=== PATIENT | male | born 1990 | race Hispanic/Latino ===

== ENCOUNTER 2019-08-01 23:36 | Inpatient (IN) | payer BC ==
[~2019-08-01] VITALS: Ht 175.3 cm; Wt 90.7 kg
[~2019-08-01 23:36] MED LIST: TYLENOL WITH C1 EACH PO
[2019-08-02] MEDS ORDERED: ACETAMINOPHEN 325 MG TAB PO ONE (00:30)
[2019-08-02 01:36] LABS: BASOPHILS # (AUTO) 0.1 (0.0-0.1); BASOPHILS % 0.7 % (0.0-1.0); EOSINOPHILS # (AUTO) 0.3 (0.0-0.4); EOSINOPHILS % 2.8 % (0.0-6.0); HEMATOCRIT 41.3 % (38.2-49.6); HEMOGLOBIN 14.3 g/dL (14.0-18.0); LYMPHOCYTES # (AUTO) 0.9 (1.0-3.2); LYMPHOCYTES % 8.7 % (18.0-39.1); MEAN CORPUSCULAR HEMOGLOBIN 30.6 pg (28-32); MEAN CORPUSCULAR HGB CONC 34.6 g/dL (31-35); MEAN CORPUSCULAR VOLUME 88.2 fL (81-99); MONOCYTES # (AUTO) 0.9 (0.2-0.8); MONOCYTES % 8.5 % (4.4-11.3); NEUTROPHILS % 79.1 % (38.7-80.0); PLATELET COUNT 231 x10e3/uL (140-360); RED BLOOD COUNT 4.68 x10e6/uL (4.3-5.7); RED CELL DISTRIBUTION WIDTH 12.5 % (11.7-14.4)
[2019-08-02 01:53] LABS: ALANINE AMINOTRANSFERASE 112 IU/L (0-55); ALBUMIN 4.5 g/dL (3.5-5.0); ALBUMIN/GLOBULIN RATIO 1.4 (0.8-2.0); ALKALINE PHOSPHATASE 107 IU/L (40-150); ANION GAP 14.7 mmol/L (8-16); BLOOD UREA NITROGEN 12 mg/dL (7-26); BUN/CREATININE RATIO 14 (6-25); CALCIUM 9.9 mg/dL (8.4-10.2); CARBON DIOXIDE 29 mmol/L (22-29); CHLORIDE 101 mmol/L (98-107); CREATINE KINASE 119 IU/L (30-200); CREATININE, SERUM 0.85 mg/dL (0.72-1.25); EST GLOMERULAR FILTRATION RATE > 60 ML/MIN (60-); GLUCOSE 91 mg/dL (74-118); POTASSIUM 3.7 mmol/L (3.5-5.1); SODIUM 141 mmol/L (136-145)
[2019-08-02] MEDS ORDERED: ONDANSETRON HCL INJ 2MG/ML 2ML 2 MG/ML VIAL IV STA (02:19)
[2019-08-02] MEDS ORDERED: IOPAMIDOL 370 MG/ML 200 ML INFUS..BTL INJ ONE (02:26)
[2019-08-02] MEDS ORDERED: SODIUM CHLORIDE 0.9% 50ML 50 ML ONE (02:26)
[2019-08-02] MEDS ORDERED: MORPHINE SULFATE INJ 4 MG/ML INJ 1ML IV ONE (02:30)
[2019-08-02] MEDS ORDERED: MORPHINE SULFATE INJ 4 MG/ML INJ 1ML ONE (02:31)
[2019-08-02] MEDS ORDERED: MORPHINE SULFATE 2 MG/ML SYR 1ML ONE (02:32)
--- NOTE | 2019-08-02 03:17 | Diagnostic Imaging Report ---
EXAM: CT Pelvis with contrast INDICATION: Fever, follow-up scrotal abscess. COMPARISON: None. TECHNIQUE: Pelvis were scanned utilizing a multidetector helical scanner from the iliac crest to the pubic symphysis without administration of IV contrast. Coronal and sagittal reformations were obtained. Routine protocol was performed. IV CONTRAST: 100 cc of Isovue 370 ORAL CONTRAST: None RADIATION DOSE: Total DLP: 469 mGy*cm Estimated effective dose: (DLP x 0.015 x size factor) mSv COMPLICATIONS: None FINDINGS: LINES and TUBES: None. GI TRACT: Partially visualized. No evidence of bowel obstruction or wall thickening. PELVIC ORGANS/BLADDER: The bladder and prostate appear unremarkable. LYMPH NODES: No lymphadenopathy. VESSELS: Unremarkable. PERITONEUM / RETROPERITONEUM: No free air or fluid. BONES: Unremarkable. SOFT TISSUES: There are bilateral small hydroceles. Scrotal wall appears thickened. No evidence of abscess. IMPRESSION: Bilateral small hydroceles. Scrotal wall thickening, which may reflect cellulitis. No definite abscess. Signed by: Dr. Rajwinder Lambert MD on 08/02/2019 3:13 AM
[2019-08-02 03:27] LABS: BILIRUBIN,URINE NEGATIVE (NEGATIVE); CLARITY,URINE CLEAR (CLEAR); COLOR,URINE YELLOW (YELLOW); KETONES,URINE NEGATIVE (NEGATIVE); LEUKOCYTE ESTERASE ,URINE NEGATIVE (NEGATIVE); NITRITE,URINE NEGATIVE (NEGATIVE); PROTEIN,URINE DIPSTICK NEGATIVE (NEGATIVE); URINE UROBILINOGEN 0.2 mg/dL (0.2 - 1)
[2019-08-02] MEDS ORDERED: CEFEPIME HCL 1 GM VIAL IV SCH (03:30)
[2019-08-02] MEDS ORDERED: VANCOMYCIN 1GM/NS 250 ML 250 ML IV SCH (03:30)
[2019-08-02] MEDS ORDERED: MORPHINE SULFATE INJ 4 MG/ML INJ 1ML IV PRN ×2 (03:30→09:00)
[2019-08-02] MEDS ORDERED: ONDANSETRON HCL INJ 2MG/ML 2ML 2 MG/ML VIAL IV PRN (03:30)
[2019-08-02 03:39] LABS: BACTERIA,URINE RARE /HPF; EPITHELIAL CELLS,URINE RARE /LPF; MUCUS,URINE FEW (RARE); RBC,URINE 0-5 /HPF (0-5); WBC,URINE (MAN) 0-5 /HPF (0-5)
[2019-08-02] MEDS ORDERED: CEFEPIME 1GM/NS 0.9% 50 ML 50 ML IV SCH (04:00)
[2019-08-02 07:35] VITALS: BP 142/94
--- NOTE | 2019-08-02 07:35 | NUR ---
PATIENT RECEIVED FROM ER PER WHEEL CHAIR. ALERT AND VERBALLY RESPONSIVE. SKIN WARM AND DRY TO TOUCH, REDNESS AND SCROTUM. RESPIRATION EVEN AND UNLABORED. ABDOMEN SOFT AND NON DISTENDED. PATIENT ORIENTED TO SURROUNDINGS. BED IN LOWER POSITION, CALL LIGHT AT REACH, INSTRUCTED TO CALL FOR ASSISTANCE NEEDED.
[2019-08-02 08:00] VITALS: BP 142/84
[2019-08-02] MEDS ORDERED: ACETAMINOPHEN/CODEINE 300MG - 30MG TAB PO PRN (08:45)
--- NOTE | 2019-08-02 11:47 | NUR ---
PATIENT IS AMBULATING IN HALLWAY BY SELF. NO COMPLAIN VOICED. WILL CLOSELY MONITOR.
[2019-08-02 13:00] VITALS: BP 124/76
--- NOTE | 2019-08-02 15:55 | NUR ---
PATIENT IN BED RESTING WITH EYES CLOSED, NO DISTRESS NOTED. CALL LIGHT AT REACH.
[2019-08-02 16:00] VITALS: BP 121/62
[2019-08-02] MEDS: MORPHINE SULFATE 2 MG/ML SYR 1ML IV PRN (18:10)
--- NOTE | 2019-08-02 18:19 | Consultation ---
DATE OF CONSULTATION: REASON FOR CONSULTATION: The patient has cellulitis of scrotum with low fever, recommendation on antibiotic. HISTORY OF PRESENT ILLNESS: This patient, who is well known to me is a 29-year-old male, who was recently in the hospital where he was diagnosed with abscess of the scrotum, underwent debridement by Dr. Raza. The patient was discharged home on IV antibiotic, did grow MRSA. The patient was getting vancomycin. He started to have pain in the scrotum with some fever and chills so he came here. He is currently lying in bed comfortably. PAST MEDICAL HISTORY: Scrotal abscess. PAST SURGICAL HISTORY: Debridement. ALLERGIES: NKA. SOCIAL HISTORY: There is no smoking, drug abuse, or alcohol abuse. FAMILY HISTORY: Otherwise unremarkable. REVIEW OF SYSTEMS: HEENT: Negative. PULMONARY: Negative. CARDIAC: Negative. : Negative beside the pain and swelling he denies any. PHYSICAL EXAMINATION: GENERAL: He is currently alert, oriented, does not seem to be in acute distress. VITAL SIGNS: Stable, currently afebrile. HEENT: He is not icteric. NECK: Supple. CHEST: Clear. HEART: S1, S2. No S3, S4, or murmur. ABDOMEN: Soft. Bowel sounds present. No tenderness. : Scrotum; there is no redness, no edema at the present time. IMAGING DATA: His CT scan shows scrotal wall thickness, which may reflect cellulitis. No abscess. Bilateral small hydrocele. IMPRESSION: 1. Abscess of scrotum slowly getting better. He is currently on vancomycin. 2. Low fever, it could be drug related. His lab data was within normal limits, monocytes slightly elevated. We will observe blood cultures, if they came back negative in 48 hours we can probably change to oral antibiotic, in the meantime continue with the same. We will follow with you. Thank you for asking me to see this patient. MD MONSE Perez/JANESSA /[id number]
[2019-08-02 19:13] VITALS: BP 128/64
--- NOTE | 2019-08-02 19:13 | NUR ---
PT IS RESTING IN BED. RESPIRATION IS EVEN AND UNLABORED, NO DISTRESS NOTED. BED IN THE LOWEST POSITION, LOCKED, AND CALL LIGHT WITHIN REACH. WILL CONTINUE TO MONITOR.
[2019-08-02 20:00] VITALS: BP 128/64
[2019-08-03] VITALS (8 sets, daily range): BP systolic 111–136; BP diastolic 59–90
[2019-08-03] MEDS: MORPHINE SULFATE 2 MG/ML SYR 1ML IV PRN (01:56)
[2019-08-03] MEDS ORDERED: SODIUM CHLORIDE 0.9% 250ML 250 ML ONE (03:40)
[2019-08-03] MEDS: VANCOMYCIN 1GM/NS 250 ML 250 ML IV SCH (03:57)
[2019-08-03] MEDS ORDERED: TYLENOL WITH C1 EACH PO (05:32)
[2019-08-03] MEDS: ACETAMINOPHEN/CODEINE 300MG - 30MG TAB PO PRN ×3 (05:34→18:58)
[2019-08-03 06:22] LABS: BASOPHILS # (AUTO) 0.1 (0.0-0.1); BASOPHILS % 0.8 % (0.0-1.0); EOSINOPHILS # (AUTO) 0.6 (0.0-0.4); EOSINOPHILS % 7.6 % (0.0-6.0); HEMATOCRIT 38.9 % (38.2-49.6); HEMOGLOBIN 13.5 g/dL (14.0-18.0); LYMPHOCYTES # (AUTO) 1.6 (1.0-3.2); LYMPHOCYTES % 21.7 % (18.0-39.1); MEAN CORPUSCULAR HEMOGLOBIN 30.8 pg (28-32); MEAN CORPUSCULAR HGB CONC 34.7 g/dL (31-35); MEAN CORPUSCULAR VOLUME 88.6 fL (81-99); MONOCYTES # (AUTO) 0.7 (0.2-0.8); MONOCYTES % 9.9 % (4.4-11.3); NEUTROPHILS # (AUTO) 4.5 (2.1-6.9); NEUTROPHILS % 59.6 % (38.7-80.0); PLATELET COUNT 162 x10e3/uL (140-360); RED BLOOD COUNT 4.39 x10e6/uL (4.3-5.7); RED CELL DISTRIBUTION WIDTH 12.3 % (11.7-14.4)
[2019-08-03 06:37] LABS: ANION GAP 13.2 mmol/L (8-16); BLOOD UREA NITROGEN 12 mg/dL (7-26); BUN/CREATININE RATIO 13 (6-25); CALCIUM 9.2 mg/dL (8.4-10.2); CARBON DIOXIDE 25 mmol/L (22-29); CHLORIDE 102 mmol/L (98-107); CREATININE, SERUM 0.89 mg/dL (0.72-1.25); EST GLOMERULAR FILTRATION RATE > 60 ML/MIN (60-); GLUCOSE 142 mg/dL (74-118); POTASSIUM 3.2 mmol/L (3.5-5.1); SODIUM 137 mmol/L (136-145)
[2019-08-03] MEDS ORDERED: POTASSIUM CHLORIDE 20 MEQ TAB CR PO NR (11:30)
--- NOTE | 2019-08-03 15:50 | NUR ---
Visit made by the Spiritual Care Department Pastoral Visitor, Julia Mason. PV provided pastoral presence, hospitality, and supportive listening. Pastoral Visitor informed pt/family of the scope of [employer] [employer] and availability. CARLYN INFANTE Backhoe Operator Spiritual Care Department O: [phone] Pager: [phone] ([phone] calling from)
--- NOTE | 2019-08-03 17:01 | Consultation ---
DATE OF CONSULTATION: 08/02/2019 Dr. Rusty Raza dictating a consultation for Dr. Savage Beyer. REASON FOR CONSULTATION: Fever, pain. History of scrotal abscess with MRSA. HISTORY: A 29-year-old male, who had abscess of the scrotum, has been treated with drainage, excision, debridement, and IV antibiotics by Dr. Lynch. My part of the operation has gone well. We have been following him in the office, exchanging the packings every day, cleaning him until finally the incision had completely closed and stopped draining. The patient comes to the hospital with increasing pain and supposedly fever. LABORATORY WORK: White count 10.5, when the patient came into the hospital yesterday, today 7.5. The rest of the labs are normal except his sugar level were a little high this morning, although yesterday was normal, I believe that is due to the IV that he is receiving. PHYSICAL EXAMINATION: The patient has pain. Interestingly, the only thing left is about 3 x 2 cm hard according to the patient, tender area. The findings are not consistent with the amount of pain the patient is experiencing. 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 We discussed pain medication. I do not think the patient should have any morphine or Demerol. He should get only tramadol by mouth for pain. I discussed with the patient on recommendation. Currently, the patient has a hard tender area subcutaneously in the area of the abscess. The rest of the examination is normal including the rest of the scrotum. I told the patient that as we discussed during his 1st admission was at sometimes this problems required 2 to 3 surgeries and I told him that I would recommend excision and removal of the entire hard area that is tender. Currently, the patient refuses to have anymore surgery, wants to see if either more prolonged antibiotic therapy would soft in this spot and take the inflammation away; therefore, I told him that I will let him think about it overnight and make rounds tomorrow and if the patient has decided not to have surgery, then he can be followed either in the hospital as an outpatient by Dr. Lynch. I again think that the patient has a dependent personality and I would definitely not give him any narcotics for this pain. The findings are not consistent with the amount of pain that the patient is experiencing. MD SHILOH Martin/JANESSA /[id number]
[2019-08-04] VITALS (7 sets, daily range): BP systolic 121–131; BP diastolic 58–76
[2019-08-04] MEDS: ACETAMINOPHEN/CODEINE 300MG - 30MG TAB PO PRN ×3 (03:42→18:12)
[2019-08-04] MEDS: VANCOMYCIN 1GM/NS 250 ML 250 ML IV SCH (03:42)
[2019-08-04 04:13] LABS: BASOPHILS # (AUTO) 0.1 (0.0-0.1); BASOPHILS % 0.8 % (0.0-1.0); EOSINOPHILS # (AUTO) 0.4 (0.0-0.4); EOSINOPHILS % 6.2 % (0.0-6.0); HEMOGLOBIN 13.9 g/dL (14.0-18.0); LYMPHOCYTES # (AUTO) 1.4 (1.0-3.2); LYMPHOCYTES % 20.1 % (18.0-39.1); MEAN CORPUSCULAR HEMOGLOBIN 31.3 pg (28-32); MEAN CORPUSCULAR HGB CONC 35.6 g/dL (31-35); MEAN CORPUSCULAR VOLUME 87.8 fL (81-99); MONOCYTES # (AUTO) 0.8 (0.2-0.8); MONOCYTES % 10.5 % (4.4-11.3); NEUTROPHILS # (AUTO) 4.4 (2.1-6.9); NEUTROPHILS % 62.1 % (38.7-80.0); PLATELET COUNT 188 x10e3/uL (140-360); RED BLOOD COUNT 4.44 x10e6/uL (4.3-5.7); RED CELL DISTRIBUTION WIDTH 12.3 % (11.7-14.4)
[2019-08-04 04:32] LABS: ANION GAP 13.7 mmol/L (8-16); BLOOD UREA NITROGEN 18 mg/dL (7-26); BUN/CREATININE RATIO 22 (6-25); CALCIUM 9.3 mg/dL (8.4-10.2); CARBON DIOXIDE 25 mmol/L (22-29); CHLORIDE 104 mmol/L (98-107); CREATININE, SERUM 0.83 mg/dL (0.72-1.25); EST GLOMERULAR FILTRATION RATE > 60 ML/MIN (60-); GLUCOSE 109 mg/dL (74-118); POTASSIUM 3.7 mmol/L (3.5-5.1); SODIUM 139 mmol/L (136-145)
[2019-08-04] MEDS ORDERED: DOXYCYCLINE HY100 MG PO (05:35)
--- NOTE | 2019-08-04 07:30 | NUR ---
SPOKE WITH DR WONG RE; PT DISCHARGE OR POSSIBLE SURGERY,STATED HE WOULD BE HERE AT NOON TO SPEAK TO PT.
--- NOTE | 2019-08-04 14:20 | NUR ---
PT TRANSPORTED TO OR VIA BED
[2019-08-04] MEDS ORDERED: BUPIVACAINE 0.25% 30ML SDV INJ ONE (15:26)
[2019-08-04] MEDS ORDERED: BACITRACIN 50,000 UNIT VIAL ONE (15:26)
[2019-08-04] MEDS ORDERED: HYDROGEN PEROXIDE 120 ML BTL ONE (15:26)
[2019-08-04] MEDS ORDERED: MORPHINE SULFATE INJ 4 MG/ML INJ 1ML ONE (17:08)
--- NOTE | 2019-08-04 17:45 | NUR ---
PT RETURNED TO ROOM VIA BED AWAKE,C/O PAIN LEVEL 4 TO SCROTAL REQUESTING IV PAIN ,EXPLAINED TO PT PO PAIN MEDS ORDERED.ACKNOWLEDGE UNDERSTnding.pt refused TRAMADOL AND GABERPENTIN
[2019-08-04] MEDS ORDERED: MIDAZOLAM HCL 2 MG/2 ML VIAL ONE (17:51)
[2019-08-04] MEDS ORDERED: FENTANYL CITRATE/PF 100MCG/2 ML INJ ONE (17:51)
[2019-08-04] MEDS ORDERED: TRAMADOL HCL 50 MG TAB PO PRN (18:00)
--- NOTE | 2019-08-04 19:10 | NUR ---
Completed bedside nursing report with morning nurse. Pt alert and orient to name. Lying supine in bed flat. Call ambriz within reach. Will continue to monitor.
[2019-08-04] MEDS ORDERED: SEVOFLURANE INHAL SOLN 250 ML PEN BTL ONE (19:15)
[2019-08-04] MEDS ORDERED: KETOROLAC TROMETHAMINE 30 MG/ML VIAL ONE (19:15)
[2019-08-04] MEDS ORDERED: PROPOFOL IV EMULSION 10 MG/ML 20 ML VIAL ONE (19:15)
[2019-08-04] MEDS ORDERED: DEXAMETHASONE SOD PHOS INJ 4 MG/ML VIAL ONE (19:15)
[2019-08-04] MEDS ORDERED: ONDANSETRON HCL INJ 2MG/ML 2ML 2 MG/ML VIAL ONE (19:15)
[2019-08-04] MEDS ORDERED: LIDOCAINE HCL 2% LOCAL INJ 5 ML SDV VIAL INJ ONE (19:15)
[2019-08-05] VITALS: BP 138/82
[2019-08-05] MEDS ORDERED: HYDROCODONE/APAP 10MG-325MG TAB PO PRN
[2019-08-05] MEDS: MORPHINE SULFATE 2 MG/ML SYR 1ML IV PRN ×2 (00:25→04:30)
[2019-08-05 04:00] VITALS: BP 124/62
[2019-08-05] MEDS: VANCOMYCIN 1GM/NS 250 ML 250 ML IV SCH (04:30)
[2019-08-05] MEDS ORDERED: MORPHINE SULFATE 2 MG/ML SYR 1ML IV PRN (06:15)
[2019-08-05] MEDS ORDERED: ACETAMINOPHEN/CODEINE 300MG - 30MG TAB PO PRN (06:30)
[2019-08-05 07:59] VITALS: BP 142/80
[2019-08-05 08:44] VITALS: BP 142/80
[2019-08-05] MEDS ORDERED: GABAPENTIN 300 MG CAP PO SCH (09:00)
[2019-08-05 11:48] VITALS: BP 111/57
--- NOTE | 2019-08-05 13:55 | NUR ---
Per Dr Raza's SENIOR GEOTECHNICAL ENGINEER patient follow up in office tomorrow 8:30am, and patient can be discharge today. Ida LIRA notified
--- NOTE | 2019-08-05 15:14 | NUR ---
Patient discharged Home, prescription given, PICC line dc d per Ida OPERATIONS ASSISTANT, IV canula removed from left AC tip intact, no ss of infiltration noted, patient aware about his f/up appointment with Dr Raza Tomorrow 8:30am, dressing on scrotal area is intact, not in any distress, he refused wheelchair, walked with him until front lobby. He got taxi
--- NOTE | 2019-08-06 22:36 | Operative Report ---
DATE OF PROCEDURE: 08/04/2019 SURGEON: Rusty Raza MD PREOPERATIVE DIAGNOSIS: Scrotal mass. POSTOPERATIVE DIAGNOSIS: Scrotal mass. OPERATION PERFORMED: Excision of scrotal mass with cultures. FINDINGS: The patient had a mass in the scrotum, mainly extending to the left side of the scrotum starting right underneath the penoscrotal junction and approximately 1-1/2 to 2 cm in width by 3-1/2 to 4 cm in length. This whole thing was completely excised. A cystic area was found with fluid greenish, brownish in color. This was cultured. Closure was done primarily. INDICATIONS: The patient and I had discussed his pain prior to surgery, discussed the mass present in the scrotum prior to surgery, discussed the amount of pain that the patient had as compare with the clinical findings. His request for opiates including IV for his pain and his dependent personality. After discussing all that with the patient, we gave him plenty of time to think whether he wanted to go home without doing anything or whether surgery was his choice, particularly to find out if there was anything in this hard mass that could cause such an increasing pain, particularly the supposedly fever that the patient stated he had before coming to the emergency room in the hospital. PROCEDURE IN DETAIL: With the patient under satisfactory general anesthesia, the patient was placed in supine position on the operating table. Shaved with a razor blade. After that, he was prepped with Betadine soap and solution and draped in usual manner. Approximately 20 mL of local anesthetic were infiltrated subcuticularly subcutaneously around the mass and into the scrotum. Once that was done, an incision was made with a knife circumscribing the entire scrotal lesion. Using the Bovie, the entire mass and scar tissue were excised, finding a cystic area filled with fluid, which was cultured. Excision of the entire mass was done and sent for pathological specimen. Cultures were done, aerobic and anaerobic, sent for culture as well. Closure consisted of multiple layers of 3-0 Monocryl to prevent any more fluid collection. The skin was also closed using 3-0 Monocryl. Dermabond was placed on the incision after the sutures were placed in and gauze with a scrotal support was placed in. The patient was then taken to recovery room in satisfactory condition. ESTIMATED BLOOD LOSS: Approximately 15 to 20 mL. COUNTS: Sponge, needle count, and instrument count were correct. DISCHARGE INSTRUCTIONS: I told the patient that he would go home the next day even without seeing me. The reason to stay overnight was because of the late time when the surgery was started. I also told the patient that I will see him the next day in my office. He was instructed to do that before surgery. Primary care physician and admitting physician had written for Tylenol No. 3 and for doxycycline. I told the patient very specifically that I would not give him anything stronger than that. Obviously explanation was because of his personality as well as clinically no need for any stronger medication. We discussed addiction to opiates and how people get into it and I told him that I would not give him any stronger medication than that. Rusty Raza MD RRG/MODL /[id number] cc: Savage Beyer MD
== END 2019-08-05 15:05 | disposition home or self-care (01) | DRG 718 ==
LOC: ER 23:36 → ERHOLD 08-02 03:51 → MED/SURG3 08-02 07:26
PROVIDERS: ADMIT Internal Medicine; ATTEND Internal Medicine
PROC: 0VB50ZZ Excision of Scrotum, Open Approach (ICD-10-PCS; principal; 2019-08-04 15:25)
DX: N49.2 Inflammatory disorders of scrotum (principal); Z83.3 Family history of diabetes mellitus; Z82.3 Family history of stroke; R50.2 Drug induced fever; F60.7 Dependent personality disorder; N43.3 Hydrocele, unspecified; Z86.14 Personal history of Methicillin resistant Staphylococcus aureus infection
CPT/HCPCS: 36415; 72193; 80048; 80053; 81001; 82550; 82553; 84484; 85025; 87040; 87071; 87075; 87205; 88304; 88305; 99284; J0692; J1100; J1885; J2001; J2250; J2270; J2405; J3010; J3370; J7050; Q9967

== ENCOUNTER 2019-11-17 23:19 | Emergency (ER) | payer BC ==
[~2019-11-17] VITALS: Ht 175.3 cm; Wt 90.7 kg
[~2019-11-17 23:19] MED LIST changes: +DOXYCYCLINE HY100 MG PO
[2019-11-18] MEDS ORDERED: LIDOCAINE/PRILOCAINE 2.5-2.5% KIT ONE (00:59)
[2019-11-18] MEDS ORDERED: KETOROLAC TROMETHAMINE 60 MG/2 ML VIAL IM ONE (01:00)
[2019-11-18] MEDS ORDERED: KETOROLAC TROMETHAMINE 60 MG/2 ML VIAL ONE (01:03)
[2019-11-18] MEDS ORDERED: TETANUS/DIPHTHERIA TOX ADULT 0.5 ML SYR ONE (01:04)
[2019-11-18] MEDS: TETANUS/DIPHTHERIA TOX ADULT 0.5 ML SYR IM ONE ×2 (01:05→05:08)
== END 2019-11-18 01:45 | disposition home or self-care (01) ==
LOC: ER 23:19
DX: L02.211 Cutaneous abscess of abdominal wall (principal); L03.311 Cellulitis of abdominal wall; Z23 Encounter for immunization
CPT/HCPCS: 90471; 90714; 99282; J1885